=== PATIENT | female | born 1985 | race Hispanic/Latino ===

== ENCOUNTER → 2020-09-27 | Outpatient (CLI) | payer BC ==
--- NOTE | 2020-09-28 21:03 | MAM ---
EXAM DESCRIPTION: 3D Screening BILATERAL : Digital Mammography. CLINICAL HISTORY: 35 years Female SCREENING . Occasional soreness and pain left breast lateral and superior. No mass. No family history of breast cancer. Menarche age unknown. Childbirth age 21. Premenopausal. No HRT. Lifetime risk of developing breast cancer (Tyrer-Cuzick model)(%): Calculated due to patient age less than 35. COMPARISON: Baseline study at this facility. No prior reports available. TECHNIQUE: Bilateral CC and MLO projection full-field images, digital tomosynthesis mammographic technique. Bilateral digital 2-D full-field MLO images. CAD available for 2-D images. FINDINGS: The breast parenchymal density pattern is: Heterogeneously dense breast tissue, which may obscure small masses. Axillary nodes. Focal asymmetry upper outer quadrant right breast 6.5 cm of the nipple at 10:00. No skin thickening or nipple retraction No new focal, stellate mass or density, focal asymmetry , and no suspicious microcalcifications left breast. IMPRESSION: BIRAD CATEGORY: 0 - INCOMPLETE- Need additional imaging evaluation. RECOMMENDATIONS: FOLLOW-UP: Recall for additional imaging: Directed right breast ultrasound in the region of interest.. Written communication concerning the IMPRESSION and Follow-up, will be mailed to the patient and referring health care provider. BI-RADS 0 imaging Electronically signed by: Panfilo Campbell MD 09/28/2020 9:02 PM [facility]
== END ==
LOC: MAMMO 16:11
PROVIDERS: ATTEND Obstetrics & Gynecology
DX: Z12.31 Encounter for screening mammogram for malignant neoplasm of breast (principal)